=== PATIENT | male | born 1995 | race Caucasian/White ===

== ENCOUNTER 2017-03-02 13:39 | Emergency (ER) | payer SELFPAY ==
[2017-03-02 14:02] VITALS: BP 141/54
--- NOTE | 2017-03-02 14:12 | EDM.PDOC ---
ED HPI GENERAL MEDICAL PROBLEM - General Chief Complaint: ENT Problem Stated Complaint: [id number] SORE IN MOUTH Time Seen by Provider: 03/02/17 14:00 Source of Information: Reports: Patient History Limitations: Reports: No Limitations - History of Present Illness INITIAL COMMENTS - FREE TEXT/NARRATIVE: Patient comes emergency Department today with complaints of a sore in his mouth. Over the past 6 days he has had an area on the left upper aspect of his mouth just before this tonsil over the past 6 days. It is slowly gotten worse. He has tried some warm salt water gargles without improvement. He has had multiple canker sores in the past and thought it was a canker sore. This wound is much more sore and larger than what he has had in the past. He denies any difficulty breathing or swallowing. No swelling in his throat. No fever or chills. No headache. No ear pain. No swelling of face. - Related Data Allergies Allergy/AdvReac Type Severity Reaction Status Date / Time No Known Allergies Allergy Verified 03/02/17 14:02 Home Meds: Home Meds . [No Known Home Meds] 03/02/17 [History] Social & Family History - Tobacco Use Smoking Status *Q: Never Smoker - Caffeine Use Caffeine Use: Reports: None - Recreational Drug Use Recreational Drug Use: No ED ROS ENT - Review of Systems Review Of Systems: ROS reveals no pertinent complaints other than HPI. ED EXAM, ENT - Physical Exam Exam: See Below Exam Limited By: No Limitations General Appearance: Alert, WD/WN, No Apparent Distress Eye Exam: Bilateral Eye: Normal Inspection Ears: Normal External Exam, Normal Canal, Hearing Grossly Normal, Normal TMs Nose: Normal Inspection, Normal Mucousa, No Blood Mouth/Throat: Normal Gums, Normal Lips, Normal Teeth, Oral Ulcers (Just before the left tonsillar pillar and the uppermost left side of his bucal mucosa there is a open ulcer that has white discharge from the central location of it. There is mild erythema and swelling around the lesion. There is no fluctuance or areas of abscess concerning. No swelling of the gums.), Other (Patient features are symmetrical without overt swelling). No: Bleeding, Dental Abcess, Dental Pain, Dental Tenderness, Drooling, Lip Swelling, Lip Ulcers, Muffled Voice, Peritonsillar Mass, Pharyngeal Erythema, Throat Pain, Throat Swelling, Tongue Swelling, Tonsillar Erythema, Tonsillar Exudates, Tonsillar Swelling, Uvular Deviation, Uvular Edema Head: Atraumatic, Normocephalic. No: Facial Swelling, Sinus Tenderness Neck: Normal Inspection, Supple, Non-Tender, Full Range of Motion Respiratory/Chest: No Respiratory Distress, Lungs Clear, No Accessory Muscle Use Cardiovascular: Normal Peripheral Pulses, Regular Rate, Rhythm, No Edema GI/Abdominal: Normal Bowel Sounds (Male) Exam: Deferred Rectal (Males) Exam: Deferred Neurological: Alert, Oriented Skin: Warm, Dry, Intact Course - Vital Signs Last Recorded V/S: Last Vital Signs Temp 36.9 C 03/02/17 13:55 Pulse 66 03/02/17 13:55 Resp 12 03/02/17 13:55 BP 141/54 H 03/02/17 13:55 Pulse Ox 100 03/02/17 13:55 - Re-Assessments/Exams Free Text/Narrative Re-Assessment/Exam: 03/02/17 14:16 Explained to the patient I wonder if this is not a Aphthous stomatitis although although it is rare for them to have exudate as this minimally does. He does admit to a history of oral tobacco usage. I am unsure of what the ulcer is at this time. Although at the exudate and mild erythema and swelling we will treat him with some amoxicillin at this does not improve over the next week he is to see ENT or primary care for a biopsy of the lesion. Discharge instructions as below her spleen to the patient he was comfortable with this plan and his questions are answered. Departure - Departure Time of Disposition: 14:05 Disposition: Home, Self-Care 01 Clinical Impression: Sore in mouth - Discharge Information Instructions: Cold Sore, [id number] Forms: ED Department Discharge Additional Instructions: Tylenol and/or ibuprofen as needed for pain. [id number] Cankaid as needed for pain. Amoxicillin 1000mg twice a day for 7 days. Return to the ED if new or worsening symptoms. Recheck with Primary care or ENT for a possible biopsy of the area if it does not resolve over the next week. - Assessment/Plan Assessment:: Sore in the mouth, aphthous stomatits vs infectious vs lesion, hx of oral tobacco usage. Plan: Tylenol and/or ibuprofen as needed for pain. [id number] Cankaid as needed for pain. Amoxicillin 1000mg twice a day for 7 days. Return to the ED if new or worsening symptoms. Recheck with Primary care or ENT for a possible biopsy of the area if it does not resolve over the next week.
== END 2017-03-02 14:23 | disposition home or self-care (01) ==
LOC: DL.ED 13:39
DX: K13.70 Unspecified lesions of oral mucosa (principal)
CPT/HCPCS: 99282; 99283